=== PATIENT | male | born 1970 | race Caucasian/White ===

== ENCOUNTER → 2017-11-20 | Outpatient (CLI) | payer BC ==
[2017-11-20 17:32] LABS: THYROID PEROXIDASE ANTIBODY < 28.0 U/ML (<60.0)
[2017-11-20 17:33] LABS: THYROGLOBULIN ANTIBODY 24.1 U/ML (<60.0)
[2017-11-20 17:34] LABS: CHOLESTEROL LEVEL 207 MG/DL (<200); FREE T4 1.26 NG/DL (0.76-1.46); HDL CHOLESTEROL 36 MG/DL (>40); LDL CHOLESTEROL 138.6 MG/DL (<100); NON-HDL-C 171 MG/DL; TRIGLYCERIDES LEVEL 162 MG/DL (<150)
== END ==
LOC: M SMT 13:54
DX: E89.0 Postprocedural hypothyroidism (principal); E78.2 Mixed hyperlipidemia
CPT/HCPCS: 84443

== ENCOUNTER 2017-12-23 10:54 | Outpatient (CLI) | payer BC ==
[2017-12-23] MEDS: ACETAMINOPHEN 650 MG PO PO (12:00)
[2017-12-23] MEDS: NS 1,000 ML IV (12:01)
[2017-12-23] MEDS: NS IV (12:01)
[2017-12-23] MEDS: INFLIXIMAB IV (12:01)
== END 2017-12-23 15:30 | disposition home or self-care (01) ==
LOC: M INFU 10:54
DX: M05.79 Rheumatoid arthritis with rheumatoid factor of multiple sites without organ or systems involvement (principal); E78.00 Pure hypercholesterolemia, unspecified; K21.9 Gastro-esophageal reflux disease without esophagitis; E03.9 Hypothyroidism, unspecified; Z79.899 Other long term (current) drug therapy; Z87.891 Personal history of nicotine dependence
CPT/HCPCS: J1745

== ENCOUNTER 2018-02-03 10:03 | Outpatient (CLI) | payer BC ==
[2018-02-03] MEDS: FILTER 1.2 MICRON (ADULT TPN/MANNITOL/REMICADE) XX (10:15)
[2018-02-03] MEDS ORDERED: NS 1,000 ML IV (10:15)
[2018-02-03] MEDS: ACETAMINOPHEN TAB 650MG DOSE (2X325MG) PO (10:15)
[2018-02-03] MEDS: inFLIXimab INJECTION 1,200 MG in NS 180 ML IV (10:45)
== END 2018-02-03 13:00 | disposition home or self-care (01) ==
LOC: M INFU 10:03
DX: M05.79 Rheumatoid arthritis with rheumatoid factor of multiple sites without organ or systems involvement (principal); E78.00 Pure hypercholesterolemia, unspecified; E03.9 Hypothyroidism, unspecified; Z79.899 Other long term (current) drug therapy; Z88.8 Allergy status to other drugs, medicaments and biological substances; Z87.891 Personal history of nicotine dependence; Z87.442 Personal history of urinary calculi; Z90.49 Acquired absence of other specified parts of digestive tract; Z90.89 Acquired absence of other organs; Z96.653 Presence of artificial knee joint, bilateral
CPT/HCPCS: J1745

== ENCOUNTER 2018-03-17 13:15 | Outpatient (CLI) | payer BC ==
[2018-03-17] MEDS: ACETAMINOPHEN TAB 650MG DOSE (2X325MG) PO (13:30)
[2018-03-17] MEDS ORDERED: NS 1,000 ML IV (13:30)
[2018-03-17] MEDS: inFLIXimab INJECTION 1,200 MG in NS 180 ML IV (14:15)
[2018-03-17] MEDS: FILTER 1.2 MICRON (ADULT TPN/MANNITOL/REMICADE) XX (14:15)
== END 2018-03-17 16:30 | disposition home or self-care (01) ==
LOC: M INFU 13:15
DX: M05.79 Rheumatoid arthritis with rheumatoid factor of multiple sites without organ or systems involvement (principal); E03.9 Hypothyroidism, unspecified; K21.9 Gastro-esophageal reflux disease without esophagitis; E78.00 Pure hypercholesterolemia, unspecified; Z79.899 Other long term (current) drug therapy; Z88.8 Allergy status to other drugs, medicaments and biological substances; Z87.891 Personal history of nicotine dependence; Z87.442 Personal history of urinary calculi
CPT/HCPCS: J1745

== ENCOUNTER 2018-04-30 14:24 | Outpatient (CLI) | payer BC ==
[2018-04-30] MEDS: FILTER 1.2 MICRON (ADULT TPN/MANNITOL/REMICADE) XX (14:15)
[~2018-04-30 14:24] MED LIST: ACETAMINOPHEN TAB 650MG DOSE (2X325MG) PO; NS 1,000 ML IV
[2018-04-30] MEDS: inFLIXimab INJECTION 1,200 MG in NS 180 ML IV (14:50)
== END 2018-04-30 17:15 | disposition home or self-care (01) ==
LOC: M INFU 14:24
DX: M05.79 Rheumatoid arthritis with rheumatoid factor of multiple sites without organ or systems involvement (principal); Z88.8 Allergy status to other drugs, medicaments and biological substances; Z88.1 Allergy status to other antibiotic agents
CPT/HCPCS: J1745

== ENCOUNTER 2018-06-10 13:05 | Outpatient (CLI) | payer BC ==
[2018-06-10] MEDS: ACETAMINOPHEN TAB 650MG DOSE (2X325MG) PO (13:28)
[2018-06-10] MEDS: NS 1,000 ML IV (13:29)
[2018-06-10] MEDS: FILTER 1.2 MICRON (ADULT TPN/MANNITOL/REMICADE) XX (13:30)
[2018-06-10] MEDS: inFLIXimab INJECTION 1,200 MG in NS 180 ML IV (13:41)
== END 2018-06-10 16:05 | disposition home or self-care (01) ==
LOC: M INFU 13:05
DX: M05.79 Rheumatoid arthritis with rheumatoid factor of multiple sites without organ or systems involvement (principal); Z88.2 Allergy status to sulfonamides; Z88.8 Allergy status to other drugs, medicaments and biological substances
CPT/HCPCS: J1745

== ENCOUNTER 2018-07-21 12:01 | Outpatient (CLI) | payer BC ==
[2018-07-21] MEDS: inFLIXimab INJECTION 1,200 MG in NS 180 ML IV (12:48)
[2018-07-21] MEDS: FILTER 1.2 MICRON (ADULT TPN/MANNITOL/REMICADE) XX (12:48)
[2018-07-21] MEDS: ACETAMINOPHEN 650MG PO PRIOR TO INFUSION PO (12:48)
[2018-07-21] MEDS ORDERED: NS 1,000 ML IV (13:00)
== END 2018-07-21 15:15 | disposition home or self-care (01) ==
LOC: M INFU 12:01
DX: M05.79 Rheumatoid arthritis with rheumatoid factor of multiple sites without organ or systems involvement (principal); Z88.2 Allergy status to sulfonamides; Z88.8 Allergy status to other drugs, medicaments and biological substances
CPT/HCPCS: J1745

== ENCOUNTER 2018-09-01 11:43 | Outpatient (CLI) | payer BC ==
[~2018-09-01] VITALS: Ht 172.7 cm; Wt 120.0 kg
[~2018-09-01 11:43] MED LIST changes: +/CELE20CA PO; +/FENO14TA PO; +/WARF25TA PO; +ACET50TA PO; -ACETAMINOPHEN TAB 650MG DOSE (2X325MG) PO; +ALLO100T PO; +ALLO300T2 PO; +BENA25TA4 PO; +CELE1CAP4 PO; +COUM2.5T17 PO; +LEVO150T7 PO; +LEVO175T2 PO; +LYRI75CA PO; -NS 1,000 ML IV; +PERC2.5T PO; +PERC5TAB12 PO; +PERC7.5T12 PO; +SYNT150T PO; +SYNT175T2 PO; +TRIC145T22 PO; +ZOFR4SOL PO; +remicade IV; +tricor OR
[2018-09-01 11:55] VITALS: BP 150/98
[2018-09-01] MEDS ORDERED: inFLIXimab INJECTION 1,200 MG in NS 180 ML IV ONE (12:00)
[2018-09-01 14:30] VITALS: BP 132/78
== END 2018-09-01 14:45 | disposition home or self-care (01) ==
LOC: M INFU 11:43
PROVIDERS: ATTEND Internal Medicine
DX: M05.79 Rheumatoid arthritis with rheumatoid factor of multiple sites without organ or systems involvement (principal)
CPT/HCPCS: 96413; 96415; J1745

== ENCOUNTER 2018-10-13 11:36 | Outpatient (CLI) | payer BC ==
[~2018-10-13] VITALS: Ht 167.6 cm; Wt 120.0 kg
[2018-10-13 11:40] VITALS: BP 133/88
[2018-10-13] MEDS ORDERED: NS 1,000 ML IV SCH (11:45)
[2018-10-13] MEDS ORDERED: ACETAMINOPHEN 650MG PO PRIOR TO INFUSION PO ONE (11:45)
[2018-10-13] MEDS ORDERED: FILTER 1.2 MICRON (ADULT TPN/MANNITOL/REMICADE) XX ONE (11:45)
[2018-10-13] MEDS ORDERED: inFLIXimab INJECTION 1,200 MG in NS 180 ML IV ONE (12:00)
[2018-10-13 12:21] LABS: BASO % 0.2 % (0.0-1.0); EOS # 0.4 10^3/uL (0.0-0.50); EOS % 4.7 % (0.0-3.0); HEMATOCRIT 44.5 % (42.0-52.0); MEAN CORPUSCULAR HEMOGLOBIN 30.7 pg (27.0-33.0); MEAN CORPUSCULAR HGB CONC 33.7 g/dl (32.0-36.5); MONO # 0.7 10^3/uL (0.0-0.8); MONO % 7.6 % (0.0-5.0); NEUTROPHILS # 4.9 10^3/uL (1.8-7.7); NEUTROPHILS % 54.2 % (36.0-66.0); PLATELET COUNT, AUTOMATED 261 10^3/uL (150-450); RED BLOOD COUNT 4.89 10^6/uL (4.30-6.10); WHITE BLOOD COUNT 9.1 10^3/uL (4.0-10.0)
[2018-10-13 13:03] LABS: ALBUMIN 4.1 GM/DL (3.2-5.2); ALT/SGPT 30 U/L (12-78); BILIRUBIN,TOTAL 0.4 MG/DL (0.2-1.0); BLOOD UREA NITROGEN 15 MG/DL (7-18); CALCIUM LEVEL 8.8 MG/DL (8.5-10.1); CARBON DIOXIDE LEVEL 25 MEQ/L (21-32); CHLORIDE LEVEL 107 MEQ/L (98-107); CHOLESTEROL LEVEL 203 MG/DL (<200); CHOLESTEROL RISK RATIO 5.075 (<5); CREATININE FOR GFR 0.89 MG/DL (0.70-1.30); FREE T4 1.43 NG/DL (0.76-1.46); GLOMERULAR FILTRATION RATE > 60.0 (>60); GLUCOSE, FASTING 93 MG/DL (70-100); HDL CHOLESTEROL 40 MG/DL (>40); LDL CHOLESTEROL 131 MG/DL (<100); NON-HDL-C 163 MG/DL; SODIUM LEVEL 139 MEQ/L (136-145); TOTAL PROTEIN 7.3 GM/DL (6.4-8.2); TRIGLYCERIDES LEVEL 159 MG/DL (<150)
[2018-10-13 14:20] VITALS: BP 130/80
== END 2018-10-13 14:30 | disposition home or self-care (01) ==
LOC: M INFU 11:36
PROVIDERS: ATTEND Internal Medicine
DX: M05.79 Rheumatoid arthritis with rheumatoid factor of multiple sites without organ or systems involvement (principal); Z88.8 Allergy status to other drugs, medicaments and biological substances; E78.2 Mixed hyperlipidemia; E89.0 Postprocedural hypothyroidism
CPT/HCPCS: 36415; 80053; 80061; 84439; 84443; 85025; 96413; 96415; J1745

== ENCOUNTER 2018-11-25 11:56 | Outpatient (CLI) | payer BC ==
[~2018-11-25] VITALS: Ht 165.1 cm; Wt 120.0 kg
[~2018-11-25 11:56] MED LIST changes: -/CELE20CA PO; -/FENO14TA PO; -/WARF25TA PO; -ACET50TA PO; +ACETAMINOPHEN 650MG PO PRIOR TO INFUSION PO ONE; +COUM1TAB18 PO; +FILTER 1.2 MICRON (ADULT TPN/MANNITOL/REMICADE) XX ONE; +MAPA500T17 PO; +NS 1,000 ML IV SCH; +TRIC145T19 PO
[2018-11-25 12:00] VITALS: BP 144/88
[2018-11-25] MEDS ORDERED: inFLIXimab INJECTION 1,200 MG in NS 180 ML IV ONE (12:00)
[2018-11-25 14:40] VITALS: BP 142/88
== END 2018-11-25 14:40 | disposition home or self-care (01) ==
LOC: M INFU 11:56
PROVIDERS: ATTEND Internal Medicine
DX: M05.79 Rheumatoid arthritis with rheumatoid factor of multiple sites without organ or systems involvement (principal); Z88.8 Allergy status to other drugs, medicaments and biological substances
CPT/HCPCS: 96413; 96415; J1745

== ENCOUNTER 2019-01-06 11:06 | Outpatient (CLI) | payer BC ==
[~2019-01-06] VITALS: Ht 177.8 cm; Wt 120.0 kg
[~2019-01-06 11:06] MED LIST changes: -ACETAMINOPHEN 650MG PO PRIOR TO INFUSION PO ONE; -FILTER 1.2 MICRON (ADULT TPN/MANNITOL/REMICADE) XX ONE; -NS 1,000 ML IV SCH
[2019-01-06 11:10] VITALS: BP 151/90
[2019-01-06] MEDS ORDERED: FILTER 1.2 MICRON (ADULT TPN/MANNITOL/REMICADE) XX ONE (11:30)
[2019-01-06] MEDS ORDERED: inFLIXimab INJECTION 1,200 MG in NS 180 ML IV ONE (11:30)
[2019-01-06] MEDS ORDERED: ACETAMINOPHEN 650MG PO PRIOR TO INFUSION PO ONE (11:30)
[2019-01-06] MEDS ORDERED: NS 1,000 ML IV SCH (11:30)
--- NOTE | 2019-01-06 11:57 | HPEPDOC ---
[facility] Medical History & Physical Date of Admission January 06, 2019 Attending Physician: RENATA BEST MD History and Physical CHIEF COMPLAINT: Severe Rheumatoid Arthritis requiring Remicade infusions HISTORY OF PRESENT ILLNESS: Adolfo Grant is a 48-year-old white male, past medical history of severe rheumatoid arthritis, thyroid cancer status post-resection, who presents to the hospital this morning to receive his regularly scheduled Remicade infusion. Patient has been receiving Remicade infusions for the last 9 years without any adverse events. He is scheduled to receive Remicade every 6 weeks or the direction of [facility] in [place]. Upon presentation today, patient denies any acute complaints including chest pain/tightness/discomfort or difficulty breathing. PAST MEDICAL HISTORY: 1. Severe Rheumatoid Arthritis 2. History of thyroid cancer PAST SURGICAL HISTORY: 1. Thyroidectomy, 2006 2. Tonsillectomy, 2007 3. Right knee replacement, 2013 4. Cholecystectomy, 2014 5. Left knee replacement, 2015 SOCIAL HISTORY: Marital status: Resides in: Alone home in [place] Employment: Self-employed, retail Tobacco use: Former smoker, 13 years nicotine free ETOH: Occasional Illicit drug use: Recreational marijuana use IV drug use: Patient denies IV or other illicit drug use Other relevant social factors: Patient utilizes reading glasses FAMILY HISTORY: Father: , 63, lung cancer Mother: , early 70s, unknown cardiac problem requiring an AICD ALLERGIES: -Sulfasalazine -Certolizumab Pegol -Etanercept REVIEW OF SYSTEMS: CONSTITUTIONAL: Patient denies any fevers, chills, night sweats, changes in we ight, increased fatigue HEENT: Patient denies any headache, changing/blurry vision, ear pain, difficulty swallowing CARDIOVASCULAR: Patient denies any chest pain/discomfort, exertional angina RESPIRATORY: Denies recent history of cough, shortness of breath, difficulty breathing GASTROINTESTINAL: Denies nausea, vomiting, abdominal pain/discomfort, difficulty stooling. Recent history of constipation or diarrhea, no history of bloody stools GENITOURINARY: Denies any difficulty urinating, denies dysuria SKIN: Denies any rashes or new/evolving lesions MUSCULOSKELETAL: Denies any noticeable muscle skeletal weakness, reports joint pains secondary to his severe rheumatoid arthritis NEUROLOGICAL: Denies any numbness or tingling in his hands or his feet, denies any history of focal neurologic deficit PSYCHIATRIC: Denies psychiatric history, including clinical depression or anxiety ENDOCRINE: Denies polyuria or polydipsia HEMATOLOGIC/LYMPHATIC: Denies any history of easy/recurrent bruising or bleeding HOME MEDICATIONS: 1. Synthroid 150 mg tablet 2 Synthroid 175 mg tablet 3. Allopurinol 300 mg tablet 4. TriCor 145 mg tablets 5. Clobetasol 0.05% topical cream 6. Remicade 100 mg IV infusion every 6 months 7. Ibuprofen 800 mg tablet when necessary PHYSICAL EXAMINATION: GENERAL APPEARANCE: HEENT: Normocephalic, atraumatic PERRLA, EOMI, good oral hygiene, no posterior pharyngeal erythema, tongue is midline CARDIOVASCULAR: Regular rate and rhythm, normal S1 and S2 no murmurs appreciated LUNGS: Clear to auscultation bilaterally, no wheezes rales or rhonchi ABDOMEN: Nontender, nondistended, soft MUSCULOSKELETAL: Normal gait and posture EXTREMITIES: Able to move all extremities equally and bilaterally without difficulty, with full range of motion NEUROLOGICAL: Strength 5 out of 5 in upper and lower extremities. No appreciable focal neurologic deficits. No aphasia or facial drooping PSYCHIATRIC: Mood and affect are appropriate ASSESSMENT: Patient is a 48-year-old white male, past medical history significant for severe rheumatoid arthritis, history of thyroid cancer S/P thyroidectomy, who presents to the hospital to receive his Remicade infusion. Patient has been receiving Remicade infusions for the greater part of the last 9 years without adverse event. Upon presentation, patient's is in his usual state of health without any acute complaints or concerns, supported by physical exam. PLAN: 1. Severe rheumatoid arthritis -History and physical examination does not indicate any condition that would preclude the patient receiving his regular scheduled Remicade infusion. -Patient to receive 10 mg/kg 120 kg for a total dose of 1200 mg of reconstituted Remicade and 50 mL 0.9% NaCl solution -Patient to receive Remicade infusions every 6 weeks Home Medications Scheduled Allopurinol (Allopurinol) 100 Mg Tab, 300 MG PO QHS Fenofibrate Nanocrystallized (Tricor) 145 Mg Tab, 145 MG PO DAILY Levothyroxine Sodium (Levothyroxine Sodium) 175 Mcg Tab, 175 MCG PO Q2D Levothyroxine Sodium (Levothyroxine Sodium) 150 Mcg Tab, 150 MCG PO Q2D [remicade] , 1,200 MG IV ASDIRECTED Allergies Coded Allergies: MS - Benzyl Alcohol (Verified Allergy, Unknown, 02/07/16) MS - Certolizumab Pegol (Verified Allergy, Unknown, 07/21/18) MS - Etanercept (Verified Allergy, Unknown, 02/07/16) MS - Sulfa Antibiotics (Verified Allergy, Unknown, 02/07/16) MS - Sulfasalazine (Verified Allergy, Unknown, 07/21/18) MS - Tromethamine (Verified Allergy, Unknown, 02/07/16) Attending Note Attending Note I personally performed a history and physical examination of the patient and discussed his management with the resident. I reviewed the resident's note and agree with the documented findings and plan of care. I spent 10 mins with the patient. GINYN RAHMAN DO January 06, 2019 11:57 RENATA BEST MD January 06, 2019 13:12
[2019-01-06 14:18] VITALS: BP 132/79
== END 2019-01-06 14:15 | disposition home or self-care (01) ==
LOC: M INFU 11:06
PROVIDERS: ATTEND Internal Medicine
DX: M05.79 Rheumatoid arthritis with rheumatoid factor of multiple sites without organ or systems involvement (principal); Z88.2 Allergy status to sulfonamides; Z88.8 Allergy status to other drugs, medicaments and biological substances
CPT/HCPCS: 96413; 96415; J1745

== ENCOUNTER 2019-02-18 12:04 | Outpatient (CLI) | payer BC ==
[~2019-02-18] VITALS: Ht 172.7 cm; Wt 120.0 kg
[~2019-02-18 12:04] MED LIST changes: +ACETAMINOPHEN 650MG PO PRIOR TO INFUSION PO ONE; +FILTER 1.2 MICRON (ADULT TPN/MANNITOL/REMICADE) XX ONE; +NS 1,000 ML IV SCH; +inFLIXimab INJECTION 1,200 MG in NS 180 ML IV ONE
[2019-02-18 12:15] VITALS: BP 170/79
[2019-02-18 15:00] VITALS: BP 168/76
== END 2019-02-18 15:00 | disposition home or self-care (01) ==
LOC: M INFU 12:04
PROVIDERS: ATTEND Internal Medicine Rheumatology
DX: M05.79 Rheumatoid arthritis with rheumatoid factor of multiple sites without organ or systems involvement (principal); Z88.8 Allergy status to other drugs, medicaments and biological substances
CPT/HCPCS: 96413; 96415; J1745

== ENCOUNTER 2019-03-30 12:06 | Outpatient (CLI) | payer BC ==
[~2019-03-30] VITALS: Ht 172.7 cm; Wt 120.0 kg
[2019-03-30 11:20] VITALS: BP 144/89
[~2019-03-30 12:06] MED LIST changes: -ACETAMINOPHEN 650MG PO PRIOR TO INFUSION PO ONE; -FILTER 1.2 MICRON (ADULT TPN/MANNITOL/REMICADE) XX ONE; -NS 1,000 ML IV SCH; -inFLIXimab INJECTION 1,200 MG in NS 180 ML IV ONE
[2019-03-30] MEDS ORDERED: FILTER 1.2 MICRON (ADULT TPN/MANNITOL/REMICADE) XX ONE (12:45)
[2019-03-30] MEDS ORDERED: NS 1,000 ML IV SCH (12:45)
[2019-03-30] MEDS ORDERED: ACETAMINOPHEN 650MG PO PRIOR TO INFUSION PO ONE (13:00)
[2019-03-30] MEDS ORDERED: inFLIXimab INJECTION 1,200 MG in NS 180 ML IV ONE (13:30)
== END 2019-03-30 15:40 | disposition home or self-care (01) ==
LOC: M INFU 12:06
PROVIDERS: ATTEND Internal Medicine Rheumatology
DX: M05.79 Rheumatoid arthritis with rheumatoid factor of multiple sites without organ or systems involvement (principal); Z88.2 Allergy status to sulfonamides; Z88.8 Allergy status to other drugs, medicaments and biological substances
CPT/HCPCS: 96413; 96415; J1745

== ENCOUNTER 2019-05-10 12:12 | Outpatient (CLI) | payer BC ==
[~2019-05-10] VITALS: Ht 172.7 cm; Wt 120.0 kg
[2019-05-10 12:25] VITALS: BP_SYST 135; BP_SYST 152; BP_DIAS 63; BP_DIAS 89
[2019-05-10] MEDS ORDERED: NS 1,000 ML IV SCH (12:45)
[2019-05-10] MEDS ORDERED: FILTER 1.2 MICRON (ADULT TPN/MANNITOL/REMICADE) XX ONE (12:45)
[2019-05-10] MEDS ORDERED: ACETAMINOPHEN 650MG PO PRIOR TO INFUSION PO ONE (12:45)
[2019-05-10] MEDS ORDERED: inFLIXimab INJECTION 1,200 MG in NS 180 ML IV ONE (13:00)
[2019-05-10 15:10] VITALS: BP 135/77
== END 2019-05-10 15:20 | disposition home or self-care (01) ==
LOC: M INFU 12:12
PROVIDERS: ATTEND Internal Medicine Rheumatology
DX: M05.79 Rheumatoid arthritis with rheumatoid factor of multiple sites without organ or systems involvement (principal); Z88.2 Allergy status to sulfonamides; Z88.8 Allergy status to other drugs, medicaments and biological substances
CPT/HCPCS: 96413; 96415; J1745

== ENCOUNTER 2019-06-22 12:23 | Outpatient (CLI) | payer BC ==
[~2019-06-22] VITALS: Ht 172.7 cm; Wt 120.0 kg
[2019-06-22] MEDS ORDERED: SODIUM CHLORIDE 0.9% INJ 10 ML SYR IV PRN (13:00)
[2019-06-22] MEDS ORDERED: SODIUM CHLORIDE 0.9% INJ 10 ML SYR IV ONE (13:00)
[2019-06-22] MEDS ORDERED: NS 1,000 ML IV SCH (13:30)
[2019-06-22] MEDS ORDERED: FILTER 1.2 MICRON (ADULT TPN/MANNITOL/REMICADE) XX ONE (13:30)
[2019-06-22] MEDS ORDERED: inFLIXimab INJECTION 1,200 MG in NS 180 ML IV ONE (14:00)
[2019-06-22] MEDS ORDERED: ACETAMINOPHEN 650MG PO PRIOR TO INFUSION PO ONE (14:00)
== END 2019-06-22 16:25 | disposition home or self-care (01) ==
LOC: M INFU 12:23
PROVIDERS: ATTEND Internal Medicine Rheumatology
DX: M05.79 Rheumatoid arthritis with rheumatoid factor of multiple sites without organ or systems involvement (principal); Z88.2 Allergy status to sulfonamides; Z88.8 Allergy status to other drugs, medicaments and biological substances
CPT/HCPCS: 96413; 96415; J1745

== ENCOUNTER 2019-08-03 12:23 | Outpatient (CLI) | payer BC ==
[~2019-08-03] VITALS: Ht 172.7 cm; Wt 120.0 kg
[2019-08-03 12:30] VITALS: BP 155/94
[2019-08-03] MEDS ORDERED: FILTER 1.2 MICRON (ADULT TPN/MANNITOL/REMICADE) XX ONE (13:30)
[2019-08-03] MEDS ORDERED: inFLIXimab INJECTION 1,200 MG in NS 180 ML IV ONE (13:30)
[2019-08-03] MEDS ORDERED: NS 1,000 ML IV SCH (13:30)
[2019-08-03] MEDS ORDERED: ACETAMINOPHEN 650MG PO PRIOR TO INFUSION PO ONE (13:30)
[2019-08-03 15:30] VITALS: BP 143/79
== END 2019-08-03 15:30 | disposition home or self-care (01) ==
LOC: M INFU 12:23
PROVIDERS: ATTEND Internal Medicine Rheumatology
DX: M05.79 Rheumatoid arthritis with rheumatoid factor of multiple sites without organ or systems involvement (principal); Z88.2 Allergy status to sulfonamides; Z88.8 Allergy status to other drugs, medicaments and biological substances
CPT/HCPCS: 96413; 96415; J1745

== ENCOUNTER 2020-02-03 12:38 | Inpatient (IN) | payer BC ==
[~2020-02-03] VITALS: Ht 175.3 cm; Wt 111.8 kg
[2020-02-03 13:12] LABS: BASO % 0.3 % (0.0-1.0); EOS # 0.4 10^3/uL (0.0-0.5); EOS % 2.7 % (0.0-3.0); HEMATOCRIT 44.9 % (42.0-52.0); HEMOGLOBIN 15.1 g/dl (13.5-17.5); LYMPH # 5.3 10^3/uL (1.5-5.0); LYMPH % 34.3 % (24.0-44.0); MEAN CORPUSCULAR HGB CONC 33.6 g/dl (32.0-36.5); MEAN CORPUSCULAR VOLUME 92.2 fl (80.0-96.0); MONO # 1.7 10^3/uL (0.0-0.8); MONO % 11.2 % (0.0-5.0); NEUTROPHILS # 7.9 10^3/uL (1.5-8.5); NEUTROPHILS % 51.3 % (36.0-66.0); PLATELET COUNT, AUTOMATED 266 10^3/uL (150-450); RED BLOOD COUNT 4.87 10^6/uL (4.30-6.10)
[2020-02-03 13:13] LABS: WHITE BLOOD COUNT 15.4 10^3/uL (4.0-10.0)
[2020-02-03] MEDS ORDERED: ONDANSETRON 4MG/2ML VIAL IV ONE (13:30)
[2020-02-03] MEDS ORDERED: NS 1,000 ML IV ONE (13:30)
[2020-02-03 14:02] LABS: ALBUMIN 4.1 GM/DL (3.2-5.2); ALT/SGPT 36 U/L (12-78); BILIRUBIN,DIRECT 0.2 MG/DL (0.0-0.2); BLOOD UREA NITROGEN 10 MG/DL (7-18); CALCIUM LEVEL 8.9 MG/DL (8.5-10.1); CARBON DIOXIDE LEVEL 24 MEQ/L (21-32); CHLORIDE LEVEL 107 MEQ/L (98-107); CREATININE FOR GFR 0.92 MG/DL (0.70-1.30); GLOMERULAR FILTRATION RATE > 60.0 (>60); GLUCOSE, FASTING 98 MG/DL (70-100); LIPASE 29 U/L (73-393); POTASSIUM SERUM 3.8 MEQ/L (3.5-5.1); SODIUM LEVEL 140 MEQ/L (136-145); TOTAL PROTEIN 7.7 GM/DL (6.4-8.2)
[2020-02-03] MEDS ORDERED: KETOROLAC 30 MG/ML 1ML VIAL IV ONE (14:15)
[2020-02-03] MEDS ORDERED: ISOVUE-370 76% 100ML VIAL As Ordered ONE (14:20)
[2020-02-03] MEDS ORDERED: metroNIDAZOLE 500 MG in IV 1 EA IV ONE (16:00)
[2020-02-03] MEDS ORDERED: MORPHINE 4 MG/ML 1ML VIAL/SYRINGE (J2270) IV ONE (16:00)
[2020-02-03] MEDS ORDERED: cefTRIAXone SOD 1 GM in D5W MINI-BAG PLUS 50 ML IV ONE (16:00)
[2020-02-03] MEDS ORDERED: TRIC145T22 PO (16:33)
[2020-02-03] MEDS ORDERED: IBUP200T45 PO (16:33)
[2020-02-03] MEDS ORDERED: ZYLO300T6 PO (16:33)
[2020-02-03] MEDS ORDERED: MORPHINE 2 MG/ML 1ML VIAL (J2270) IV PRN (17:00)
[2020-02-03] MEDS ORDERED: ACETAMINOPHEN TAB 650MG DOSE (2X325MG) PO PRN (17:00)
--- NOTE | 2020-02-03 17:18 | HPEPDOC ---
[facility] Medical History & Physical Date of Admission Feb 03, 2020 Date of Service: Feb 03, 2020 Attending Physician: RENATA BEST MD History and Physical CHIEF COMPLAINT: Abdominal pain HISTORY OF PRESENT ILLNESS: Patient is a 49-year-old male who presented to [facility] emergency department with complaint of abdominal pain for 2 days. Patient states that he has a history of rheumatoid arthritis and takes Remicade. He had developed abdominal pain yesterday as well as a decreased appetite secondary to the pain. He stated that he was informed by his tester compressed gases that he should present to the emergency department as he is new suppressed from his Remicade. The patient denies any diarrhea. He denies any bloody stools. He denies any fevers or chills. He denies any nausea or vomiting. Patient states that his only symptoms are abdominal pain. On presentation the emergency room the patient was found to be afebrile and otherwise vitally stable. He did have a leukocytosis. CT imaging was obtained which demonstrated left colonic diverticulitis. Patient was given Flagyl 500 mg IV and Rocephin 1 g in the emergency department. Additionally, he was given normal saline bolus. He was given Toradol and morphine for pain. Hospitalist service was consulted for further evaluation and management. PAST MEDICAL HISTORY: 1. Rheumatoid arthritis on Remicade. 2. Hypercholesteremia. 3. Hypothyroidism secondary to thyroidectomy 4. History of thyroid cancer status post thyroidectomy 5. History of kidney stones PAST SURGICAL HISTORY: 1. Bilateral knee replacement 2 Total Thyroidectomy for thyroid cancer 3., Tonsillectomy 4. Trans-urethral resection of Ejaculatory duct 5. Left variceal correction SOCIAL HISTORY: Patient lives at home with his fiance. He is self-employed. He is a nonsmoker. He denies any IV drug use. He was to marijuana use. He drinks alcohol on occasion. FAMILY HISTORY: Patient denies any significant family history ALLERGIES: Please see below. REVIEW OF SYSTEMS: CONSTITUTIONAL:. Denies fevers, chills, night sweats. Denies unintentional weight loss or weight gain. HEENT:. Denies change in vision. Denies dysphagia. Denies odynophagia CARDIOVASCULAR: Denies chest pain, palpitations or feelings of heart racing. RESPIRATORY:. Denies short of breath. Denies cough. Denies wheezing. GASTROINTESTINAL:. Admits to abdominal pain mostly located in the left lower quadrant. Denies diarrhea, constipation. Denies blood in stools. Denies dark tarry stools. Denies nausea or vomiting. GENITOURINARY:. Denies dysuria, increased frequency. Denies urinary urgency. SKIN:. Denies any rashes or lesions. MUSCULOSKELETAL:. Admits to chronic joint pain secondary to his rheumatoid arthritis. However, nothing more from his baseline.. NEUROLOGICAL: Denies any change in speech or gait. PSYCHIATRIC:. Denies depression or anxiety. ENDOCRINE:. Denies heat intolerance, or cold intolerance. Denies diabetes HEMATOLOGIC/LYMPHATIC:, Denies easy bruising or bleeding. Denies history of pulmonary embolism or DVT. HOME MEDICATIONS: Please see below. PHYSICAL EXAMINATION: VITAL SIGNS: Temperature 98.6, pulse, 91, respiratory rate 18, blood pressure 131\75, pulse oximetry, 98 % on room air. GENERAL APPEARANCE:. Patient is awake, alert and oriented, does not appear in acute distress. He sitting up comfortably on exam bed. HEENT:, Atraumatic normocephalic. Eyes are nonicteric. Trachea is midline. mucous membranes are pink and moist. CARDIOVASCULAR: Normal S1, S2, regular rate and rhythm. No clicks, rubs or murmurs. LUNGS:. Clear vesicular breath sounds bilaterally. Good respiratory effort. No wheezes, rhonchi or rales. Symmetric chest expansion. ABDOMEN:. Soft, obese, nondistended, mild tenderness in the left lower quadrant. No rebound tenderness or guarding. Normoactive bowel sounds throughout EXTREMITIES: No edema. Full and equal pulses in bilateral upper and lower ex tremities. NEUROLOGICAL:. No focal neurological deficits. PSYCHIATRIC: Mood and affect appear appropriate. LABORATORY DATA: See below. IMAGING: Full report pending. Abdominal pelvis CT demonstrating likely left colonic diverticulitis MICROBIOLOGY: Please see below. ASSESSMENT: A 49-year-old male who presented to [facility] emergency department with complaint of left lower quadrant abdominal pain and found to have left colonic diverticulitis. . PLAN: 1. Left colonic diverticulitis -Patient has left clonic diverticulitis demonstrated on CT imaging. He has elevated white count. Patient is otherwise vitally stable. He received IV Flagyl and Rocephin in the emergency department. -At this time. Imaging does not suggest any acute perforation. The patient's diverticulitis appears mild. We'll continue IV Flagyl 500 mg every 8 hours Will adjust Rocephin dose to 2 g every 24 hours. -Patient has stated that his pain is mild. He states that he is able to try and tolerate oral intake. We'll place on a clear liquids diet. If patient has increased pain. We will make patient nothing by mouth and R to give bowel rest. Will give gentle fluid hydration with normal saline 1 L total. -Tylenol and morphine for pain control -Zofran for nausea, vomiting -Pending patient's clinical improvement, will likely transition to oral antibiotics in a day or so. 2. Rheumatoid arthritis on Remicade -Patient is on Remicade outpatient for rheumatoid arthritis. Currently his rheumatoid arthritis is not in acute flare. 3. Hypothyroidism -Patient is hypothyroidism secondary to thyroidectomy secondary to history of thyroid cancer. Will continue his Synthroid inpatient. 4. Hyperlipidemia -Will continue fenofibrate 5. DVT prophylaxis -Mechanical. Patient's Richelle prediction score is 2 and therefore pharmacological prophylaxis not indicated Vital Signs Vital Signs Date Time Temp Pulse Resp B/P (MAP) Pulse Ox O2 Delivery O2 Flow Rate FiO2 02/03/20 13:14 02/03/20 12:38 98.6 91 18 98 Room Air Laboratory Data Labs 24H Laboratory Tests 2 02/03/20 13:00: Immature Granulocyte % (Auto) 0.2, Neutrophils (%) (Auto) 51.3, Lymphocytes (%) (Auto) 34.3, Monocytes (%) (Auto) 11.2H, Eosinophils (%) (Auto) 2.7, Basophils (%) (Auto) 0.3, Neutrophils # (Auto) 7.9, Lymphocytes # (Auto) 5.3H, Monocytes # (Auto) 1.7H, Eosinophils # (Auto) 0.4, Basophils # (Auto) 0.0, Nucleated Red Blood Cells % (auto) 0.0, Anion Gap 9, Glomerular Filtration Rate > 60.0, Calcium Level 8.9, Total Bilirubin 1.0, Direct Bilirubin 0.2, Aspartate Amino Transf (AST/SGOT) 21, Alanine Aminotransferase (ALT/SGPT) 36, Alkaline Phosphatase 75, Total Protein 7.7, Albumin 4.1, Albumin/Globulin Ratio 1.1, Lipase 29L 02/03/20 13:45: POC Glucose (Misc Panel) 103, POC Sodium (Misc Panel) 140, POC Potassium (Misc Panel) 3.8, POC Chloride (Misc Panel) 103, POC Total CO2 (Misc Panel) 25.0, POC Blood Urea Nitrogen (Misc Panel 10, POC Ionized Calcium (Misc Panel) 4.7, POC Creatinine (Misc Panel) 0.8, POC Hematocrit (Misc Panel) 47.0 02/03/20 15:48: Urine Color YELLOW, Urine Appearance CLEAR, Urine pH 6.0, Urine Specific Saxon 1.053, Urine Protein NEGATIVE, Urine Glucose (UA) NEGATIVE, Urine Ketones NEGATIVE, Urine Blood NEGATIVE, Urine Nitrite NEGATIVE, Urine Bilirubin NEGATIVE, Urine Urobilinogen 0.2, Urine Leukocyte Esterase NEGATIVE, Urine WBC (Auto) 0, Urine RBC (Auto) 0, Urine Hyaline Casts (Auto) 0, Urine Bacteria (Auto) NEGATIVE, Urine Squamous Epithelial Cells 0, Urine Sperm (Auto) CBC/BMP Laboratory Tests 02/03/20 13:00 Home Medications Scheduled Allopurinol (Zyloprim) 300 Mg Tablet, 300 MG PO QHS Fenofibrate Nanocrystallized (Tricor) 145 Mg Tablet, 145 MG PO DAILY Levothyroxine Sodium (Levothyroxine Sodium) 175 Mcg Tab, 175 MCG PO Q2D SYNTHROID BRAND ONLY PER PATIENT Levothyroxine Sodium (Levothyroxine Sodium) 150 Mcg Tab, 150 MCG PO Q2D SYNTHROID BRAND ONLY PER PATIENT [remicade] , 1,200 MG IV ASDIRECTED Scheduled PRN Ibuprofen (Ibu-200) 200 Mg Tablet, 800 MG PO TID PRN for PAIN Allergies Coded Allergies: Sulfa (Sulfonamide Antibiotics) (Unverified Allergy, Unknown, 02/03/20) etanercept (Unverified Allergy, Unknown, 02/03/20) certolizumab pegol (Verified Adverse Reaction, Intermediate, ELEVATES LIVER ENZYMES, 02/03/20) tramadol (Verified Adverse Reaction, Mild, SHAKEY, 02/03/20) A-FIB/CHADSVASC A-FIB History Current/History of A-Fib/PAF?: No Attending Note I performed a history and physical examination of the patient and discussed the management with the resident. I have reviewed the resident's note ad agree with the documented findings and plan of care. BELINDA PITT DO Feb 03, 2020 17:18 RENATA BEST MD Feb 03, 2020 21:19
[2020-02-03] MEDS ORDERED: NS 1,000 ML IV SCH (17:30)
[2020-02-03 18:45] VITALS: BP 159/96
[2020-02-03] MEDS: metroNIDAZOLE 500 MG in IV 1 EA IV SCH (20:12)
[2020-02-03] MEDS: ONDANSETRON 4MG/2ML VIAL IV PRN (20:25)
[2020-02-03] MEDS: oxyCODONE 5MG TAB PO PRN (20:25)
[2020-02-03] MEDS ORDERED: IBUPROFEN 800 MG TAB PO PRN (21:30)
[2020-02-03] MEDS: allopurinoL 300 MG TAB PO SCH (21:32)
[2020-02-03 22:00] VITALS: BP 135/84
[2020-02-04] MEDS: oxyCODONE 5MG TAB PO PRN ×2 (00:49→05:04)
[2020-02-04] MEDS: metroNIDAZOLE 500 MG in IV 1 EA IV SCH ×3 (05:03→21:10)
[2020-02-04 06:00] VITALS: BP 111/73
[2020-02-04] MEDS ORDERED: LEVOTHYROXINE 150MCG TABLET (0.15MG) PO SCH ×2 (06:00)
--- NOTE | 2020-02-04 07:12 | REP ---
REASON FOR EXAM: Left lower quadrant pain. The only prior for comparison is a noncontrast enhanced examination of 01/23/2007. Contrast today 100 mL of Isovue 370. The lung bases are clear. The liver, spleen, pancreas, adrenal glands and kidneys are within normal limits. The abdominal aorta and paraaortic regions are within normal limits. No free fluid or free air is seen in the abdomen. There are a few gas and fluid-filled mildly dilated small bowel loops in the abdomen. See involving the distal descending colon and proximal sigmoid colon, There are multiple diverticula with rather marked pericolic fatty infiltration. No free fluid or free air is seen in the pelvis. There is no evidence of a pelvic mass or adenopathy. Bone window technique through the examination shows the osseous structures to be within normal limits. IMPRESSION: There is distal descending colon and proximal sigmoid colon diverticulitis. There is a mild concomitant probably reactive small bowel ileus. Electronically Signed by Viraj Domínguez DO 02/06/2020 10:50 A
[2020-02-04 08:23] LABS: BASO # 0.1 10^3/uL (0.0-0.2); BASO % 0.3 % (0.0-1.0); EOS # 0.4 10^3/uL (0.0-0.5); EOS % 2.7 % (0.0-3.0); HEMATOCRIT 44.5 % (42.0-52.0); HEMOGLOBIN 14.8 g/dl (13.5-17.5); LYMPH # 3.7 10^3/uL (1.5-5.0); LYMPH % 23.1 % (24.0-44.0); MEAN CORPUSCULAR HEMOGLOBIN 31.4 pg (27.0-33.0); MEAN CORPUSCULAR HGB CONC 33.3 g/dl (32.0-36.5); MEAN CORPUSCULAR VOLUME 94.3 fl (80.0-96.0); MONO # 2.2 10^3/uL (0.0-0.8); MONO % 13.8 % (0.0-5.0); NEUTROPHILS # 9.6 10^3/uL (1.5-8.5); NEUTROPHILS % 59.8 % (36.0-66.0); PLATELET COUNT, AUTOMATED 240 10^3/uL (150-450); RED BLOOD COUNT 4.72 10^6/uL (4.30-6.10); WHITE BLOOD COUNT 16.1 10^3/uL (4.0-10.0)
[2020-02-04] MEDS: FENOFIBRATE 145 MG TAB (TRICOR) PO SCH (08:25)
[2020-02-04] MEDS: LORATADINE 10 MG TAB PO SCH (08:25)
[2020-02-04 08:42] LABS: BLOOD UREA NITROGEN 8 MG/DL (7-18); CALCIUM LEVEL 7.9 MG/DL (8.5-10.1); CARBON DIOXIDE LEVEL 29 MEQ/L (21-32); CHLORIDE LEVEL 107 MEQ/L (98-107); CREATININE FOR GFR 0.88 MG/DL (0.70-1.30); GLOMERULAR FILTRATION RATE > 60.0 (>60); GLUCOSE, FASTING 99 MG/DL (70-100); POTASSIUM SERUM 3.6 MEQ/L (3.5-5.1); SODIUM LEVEL 141 MEQ/L (136-145)
--- NOTE | 2020-02-04 09:41 | IPNPDOC ---
Text Note Date of Service The patient was seen on 02/04/20. NOTE SUBJECTIVE: Patient had a fever spike last night with Tmax of 102. He continues to have left lower quadrant discomfort. No bowel movements but passing flatus. Not much appetite yet. PHYSICAL EXAMINATION: VITAL SIGNS: As below GENERAL APPEARANCE:. Patient is awake, alert and oriented, does not appear in acute distress. HEENT:, Atraumatic normocephalic. Eyes are nonicteric. Trachea is midline. mucous membranes are pink and moist. CARDIOVASCULAR: Normal S1, S2, regular rate and rhythm. No clicks, rubs or murmurs. LUNGS:. Clear vesicular breath sounds bilaterally. Good respiratory effort. No wheezes, rhonchi or rales. Symmetric chest expansion. ABDOMEN:. Soft, obese, nondistended, mild tenderness in the left lower quadrant. No rebound tenderness or guarding. Normoactive bowel sounds throughout EXTREMITIES: No edema. Full and equal pulses in bilateral upper and lower e xtremities. NEUROLOGICAL:. No focal neurological deficits. PSYCHIATRIC: Mood and affect appear appropriate. RADIOLOGY and LABORATORY DATA: reviewed. ASSESSMENT: A 49-year-old male with PMH of Rheumatoid arthritis on Remicade, Hypercholesteremia, obesity, Secondary Hypothyroidism due to total thyroidectomy for thyroid cancer, H/o kidney stones who presented to [facility] emergency department with complaint of left lower quadrant abdominal pain for 2 days and found to have left colonic diverticulitis. CT Abdomen shows distal descending colon and proximal sigmoid colon diverticulitis. There is a mild concomitant probably reactive small bowel ileus. Acute diverticulitis Patient has left clonic diverticulitis demonstrated on CT imaging. He has elevated white count. blood cultures. continue ceftriaxone and flagyl. pain and fever control with tylenol and ibuprofen, oxycodone Full liquid diet. Rheumatoid arthritis on Remicade Patient is on Remicade outpatient for rheumatoid arthritis. Currently his rheumatoid arthritis is not in acute flare. Hypothyroidism Patient is hypothyroidism secondary to thyroidectomy secondary to history of thyroid cancer. Will continue his Synthroid inpatient. Hyperlipidemia Will continue fenofibrate Hyperuricemia and kidney stones allopurinol. DVT prophylaxis Mechanical. VS,Fishbone, I+O VS, Fishbone, I+O Laboratory Tests 02/03/20 13:00 02/04/20 08:08 Vital Signs Date Time Temp Pulse Resp B/P (MAP) Pulse Ox O2 Delivery O2 Flow Rate FiO2 02/04/20 06:00 98.0 79 18 111/73 (86) 96 Room Air I&O- Last 24 Hours up to 6 AM 02/04/20 06:00 Intake Total 2410 ml Balance 2410 ml RENATA BEST MD Feb 04, 2020 09:41
[2020-02-04] MEDS: ONDANSETRON 4MG/2ML VIAL IV PRN (11:30)
[2020-02-04] MEDS ORDERED: PERCOCET 5MG/325MG TAB PO PRN ×2 (11:30)
[2020-02-04 14:00] VITALS: BP 109/71
[2020-02-04] MEDS ORDERED: cefTRIAXone SOD 2 GM in D5W MINI-BAG PLUS 50 ML IV SCH (21:00)
[2020-02-04 21:07] VITALS: BP 116/69
[2020-02-04] MEDS: allopurinoL 300 MG TAB PO SCH (22:40)
[2020-02-05] MEDS: metroNIDAZOLE 500 MG in IV 1 EA IV SCH (04:47)
[2020-02-05 06:00] VITALS: BP 119/81
[2020-02-05] MEDS ORDERED: LEVOTHYROXINE 88MCG TABLET (0.088 MG) PO SCH ×2 (06:00)
[2020-02-05 06:59] LABS: BASO # 0.1 10^3/uL (0.0-0.2); BASO % 0.3 % (0.0-1.0); EOS # 0.4 10^3/uL (0.0-0.5); EOS % 2.4 % (0.0-3.0); HEMATOCRIT 41.4 % (42.0-52.0); HEMOGLOBIN 13.5 g/dl (13.5-17.5); LYMPH # 4.1 10^3/uL (1.5-5.0); LYMPH % 28.3 % (24.0-44.0); MEAN CORPUSCULAR HEMOGLOBIN 30.3 pg (27.0-33.0); MEAN CORPUSCULAR HGB CONC 32.6 g/dl (32.0-36.5); MONO # 1.7 10^3/uL (0.0-0.8); MONO % 11.7 % (0.0-5.0); NEUTROPHILS # 8.2 10^3/uL (1.5-8.5); PLATELET COUNT, AUTOMATED 225 10^3/uL (150-450); RED BLOOD COUNT 4.45 10^6/uL (4.30-6.10); WHITE BLOOD COUNT 14.5 10^3/uL (4.0-10.0)
[2020-02-05 07:23] LABS: BLOOD UREA NITROGEN 7 MG/DL (7-18); CALCIUM LEVEL 7.9 MG/DL (8.5-10.1); CARBON DIOXIDE LEVEL 23 MEQ/L (21-32); CHLORIDE LEVEL 107 MEQ/L (98-107); CREATININE FOR GFR 0.76 MG/DL (0.70-1.30); GLOMERULAR FILTRATION RATE > 60.0 (>60); GLUCOSE, FASTING 91 MG/DL (70-100); POTASSIUM SERUM 3.3 MEQ/L (3.5-5.1); SODIUM LEVEL 139 MEQ/L (136-145)
[2020-02-05] MEDS: LORATADINE 10 MG TAB PO SCH (08:35)
[2020-02-05] MEDS: FENOFIBRATE 145 MG TAB (TRICOR) PO SCH (08:35)
[2020-02-05] MEDS ORDERED: FLAG500T PO (08:52)
[2020-02-05] MEDS ORDERED: CEFD300CAP PO (08:52)
[2020-02-05] MEDS ORDERED: metroNIDAZOLE (FLAGYL) 500 MG TAB PO SCH (09:00)
[2020-02-05] MEDS ORDERED: POTASSIUM CHLORIDE 10 MEQ SR TABLET PO ONE (10:00)
--- NOTE | 2020-02-05 10:50 | DS.PDOC ---
Discharge Summary General Date of Admission Feb 03, 2020 at 17:38 Date of Discharge 02/05/20 Discharge Summary PROCEDURES PERFORMED DURING STAY: [None]. DISCHARGE DIAGNOSES: Acute diverticulitis. SECONDARY DIAGNOSIS: Rheumatoid arthritis on Remicade, Hypercholesteremia, obesity, Secondary Hypothyroidism due to total thyroidectomy for thyroid cancer, H/o kidney stones COMPLICATIONS/CHIEF COMPLAINT: Diverticulitis Rheumatoid Arthritis. HISTORY OF PRESENT ILLNESS: See history and physical HOSPITAL COURSE: RADIOLOGY and LABORATORY DATA: reviewed. ASSESSMENT: A 49-year-old male with PMH of Rheumatoid arthritis on Remicade, Hypercholesteremia, obesity, Secondary Hypothyroidism due to total thyroidectomy for thyroid cancer, H/o kidney stones who presented to [facility] emergency department with complaint of left lower quadrant abdominal pain for 2 days and found to have left colonic diverticulitis. CT Abdomen shows distal descending colon and proximal sigmoid colon diverticulitis. There is a mild concomitant probably reactive small bowel ileus.. Admitted for acute diverti culitis. Acute diverticulitis Patient has left clonic diverticulitis demonstrated on CT imaging. He has elevated white count. blood cultures negative till date continue ceftriaxone and flagyl. pain controlled with tylenol and ibuprofen, low fiber diet. Rheumatoid arthritis on Remicade Patient is on Remicade outpatient for rheumatoid arthritis. Currently his rheumatoid arthritis is not in acute flare. Hypothyroidism Patient is hypothyroidism secondary to thyroidectomy secondary to history of thyroid cancer. Will continue his Synthroid inpatient. Hyperlipidemia Will continue fenofibrate Hyperuricemia and kidney stones allopurinol. DVT prophylaxis Mechanical. DISCHARGE MEDICATIONS: Please see below. ALLERGIES: Please see below. PHYSICAL EXAMINATION ON DISCHARGE: VITAL SIGNS: Please see below. GENERAL APPEARANCE:. Patient is awake, alert and oriented, does not appear in acute distress. HEENT:, Atraumatic normocephalic. Eyes are nonicteric. Trachea is midline. mucous membranes are pink and moist. CARDIOVASCULAR: Normal S1, S2, regular rate and rhythm. No clicks, rubs or mur murs. LUNGS:. Clear vesicular breath sounds bilaterally. Good respiratory effort. No wheezes, rhonchi or rales. Symmetric chest expansion. ABDOMEN:. Soft, obese, nondistended, mild tenderness in the left lower quadrant. No rebound tenderness or guarding. Normoactive bowel sounds throughout EXTREMITIES: No edema. Full and equal pulses in bilateral upper and lower extremities. NEUROLOGICAL:. No focal neurological deficits. PSYCHIATRIC: Mood and affect appear appropriate. LABORATORY DATA: Please see below. ACTIVITY: [As tolerated]. DIET: Low fiber diet. DISCHARGE PLAN: Home DISCHARGE INSTRUCTIONS: follow up PMD in 1 week DISCHARGE CONDITION: [Stable]. TIME SPENT ON DISCHARGE: 35 minutes. Vital Signs/I&Os Vital Signs Date Time Temp Pulse Resp B/P (MAP) Pulse Ox O2 Delivery O2 Flow Rate FiO2 02/05/20 06:00 99.2 89 18 119/81 (94) 95 Room Air I&O- Last 24 Hours up to 6 AM 02/05/20 06:00 Intake Total 1270 ml Output Total 0 ml Balance 1270 ml Laboratory Data Labs 24H Laboratory Tests 2 02/05/20 06:36: Immature Granulocyte % (Auto) 0.3, Neutrophils (%) (Auto) 57.0, Lymphocytes (%) (Auto) 28.3, Monocytes (%) (Auto) 11.7H, Eosinophils (%) (Auto) 2.4, Basophils (%) (Auto) 0.3, Neutrophils # (Auto) 8.2, Lymphocytes # (Auto) 4.1, Monocytes # (Auto) 1.7H, Eosinophils # (Auto) 0.4, Basophils # (Auto) 0.1, Nucleated Red Blood Cells % (auto) 0.0, Anion Gap 9, Glomerular Filtration Rate > 60.0, Calcium Level 7.9L CBC/BMP Laboratory Tests 02/05/20 06:36 Microbiology Microbiology 02/04/20 Blood Culture, Received Pending 02/04/20 Blood Culture, Received Pending Discharge Medications Scheduled Allopurinol (Zyloprim) 300 Mg Tablet, 300 MG PO QHS, (Reported) Cefdinir (Cefdinir) 300 Mg Capsule, 1 CAP PO BID Fenofibrate Nanocrystallized (Tricor) 145 Mg Tablet, 145 MG PO DAILY, (Reported) Levothyroxine Sodium (Levothyroxine Sodium) 175 Mcg Tab, 175 MCG PO Q2D, (Reported) SYNTHROID BRAND ONLY PER PATIENT Levothyroxine Sodium (Levothyroxine Sodium) 150 Mcg Tab, 150 MCG PO Q2D, (Reported) SYNTHROID BRAND ONLY PER PATIENT Metronidazole (Flagyl) 500 Mg Tablet, 500 MG PO TID [remicade] , 1,200 MG IV ASDIRECTED, (Reported) Scheduled PRN Ibuprofen (Ibu-200) 200 Mg Tablet, 800 MG PO TID PRN for PAIN, (Reported) Allergies Coded Allergies: Sulfa (Sulfonamide Antibiotics) (Unverified Allergy, Unknown, 02/03/20) etanercept (Unverified Allergy, Unknown, 02/03/20) certolizumab pegol (Verified Adverse Reaction, Intermediate, ELEVATES LIVER ENZYMES, 02/03/20) tramadol (Verified Adverse Reaction, Mild, SHAKEY, 02/03/20) RENATA BEST MD Feb 05, 2020 10:50
[2020-02-05] MEDS ORDERED: cefTRIAXone SOD 2 GM in D5W MINI-BAG PLUS 50 ML IV SCH (12:00)
== END 2020-02-05 12:00 | disposition home or self-care (01) | DRG 244 ==
LOC: M ED 12:38 → M ED INP 17:38 → ENRESERV 18:04 → M MS5PR 18:41
PROVIDERS: ADMIT Internal Medicine Nephrology; ATTEND Internal Medicine Nephrology
DX: K57.32 Diverticulitis of large intestine without perforation or abscess without bleeding (principal); E89.0 Postprocedural hypothyroidism; M06.9 Rheumatoid arthritis, unspecified; E78.5 Hyperlipidemia, unspecified; E66.9 Obesity, unspecified; Z87.442 Personal history of urinary calculi; Z85.850 Personal history of malignant neoplasm of thyroid; Z96.653 Presence of artificial knee joint, bilateral; Z79.899 Other long term (current) drug therapy; Z88.2 Allergy status to sulfonamides; Z88.8 Allergy status to other drugs, medicaments and biological substances; Z88.5 Allergy status to narcotic agent; E79.0 Hyperuricemia without signs of inflammatory arthritis and tophaceous disease; Z68.36 Body mass index [BMI] 36.0-36.9, adult

== ENCOUNTER 2020-02-29 11:59 | Outpatient (CLI) | payer BC ==
[~2020-02-29] VITALS: Ht 175.3 cm; Wt 111.3 kg
[~2020-02-29 11:59] MED LIST changes: +CEFD300CAP PO; +FLAG500T PO; +IBUP200T45 PO; +ZYLO300T6 PO
[2020-02-29 12:10] VITALS: BP 153/85
[2020-02-29] MEDS ORDERED: ACETAMINOPHEN 650MG PO PRIOR TO INFUSION PO ONE (12:30)
[2020-02-29] MEDS ORDERED: INFLIXIMAB IV ONE (12:30)
[2020-02-29] MEDS ORDERED: NS 1,000 ML IV SCH (12:30)
[2020-02-29] MEDS ORDERED: NS IV ONE (12:30)
[2020-02-29 13:12] VITALS: BP 153/85
[2020-02-29 15:05] VITALS: BP 120/70
== END 2020-02-29 15:20 | disposition home or self-care (01) ==
LOC: M INFU 11:59
PROVIDERS: ATTEND Internal Medicine Rheumatology
DX: M05.79 Rheumatoid arthritis with rheumatoid factor of multiple sites without organ or systems involvement (principal)
CPT/HCPCS: 96413; 96415; J1745

== ENCOUNTER 2020-04-11 12:00 | Outpatient (CLI) | payer BC ==
[~2020-04-11 12:00] MED LIST changes: +inFLIXimab 100MG/10ML VIAL (REMICADE) J1745 PER 10MG ONE
== END 2020-04-11 13:30 | disposition home or self-care (01) ==
LOC: M INFU 12:00
PROVIDERS: ATTEND Internal Medicine Rheumatology
DX: M06.9 Rheumatoid arthritis, unspecified (principal)
CPT/HCPCS: 96413; 96415; J1745

== ENCOUNTER → 2020-10-17 | Outpatient (REF) | payer BC ==
[~2020-10-17] MED LIST changes: -inFLIXimab 100MG/10ML VIAL (REMICADE) J1745 PER 10MG ONE
[2020-10-17 13:20] LABS: BASO % 0.3 % (0.0-1.0); EOS # 0.3 10^3/uL (0.0-0.5); EOS % 4.3 % (0.0-3.0); HEMATOCRIT 42.3 % (42.0-52.0); HEMOGLOBIN 13.5 g/dl (13.5-17.5); LYMPH # 3.6 10^3/uL (1.5-5.0); LYMPH % 46.2 % (24.0-44.0); MEAN CORPUSCULAR HEMOGLOBIN 30.1 pg (27.0-33.0); MEAN CORPUSCULAR HGB CONC 31.9 g/dl (32.0-36.5); MEAN CORPUSCULAR VOLUME 94.4 fl (80.0-96.0); MONO # 0.6 10^3/uL (0.0-0.8); NEUTROPHILS # 3.2 10^3/uL (1.5-8.5); NEUTROPHILS % 40.9 % (36.0-66.0); PLATELET COUNT, AUTOMATED 208 10^3/uL (150-450); RED BLOOD COUNT 4.48 10^6/uL (4.30-6.10); WHITE BLOOD COUNT 7.7 10^3/uL (4.0-10.0)
[2020-10-17 13:59] LABS: ALBUMIN 3.9 GM/DL (3.2-5.2); ALT/SGPT 32 U/L (12-78); BILIRUBIN,TOTAL 0.6 MG/DL (0.2-1.0); BLOOD UREA NITROGEN 16 MG/DL (7-18); CARBON DIOXIDE LEVEL 28 MEQ/L (21-32); CHLORIDE LEVEL 106 MEQ/L (98-107); CHOLESTEROL LEVEL 175 MG/DL (<200); CHOLESTEROL RISK RATIO 3.723 (<5); CREATININE FOR GFR 0.86 MG/DL (0.70-1.30); FREE T4 1.29 NG/DL (0.76-1.46); GLOMERULAR FILTRATION RATE > 60.0 (>60); GLUCOSE, FASTING 90 MG/DL (70-100); HDL CHOLESTEROL 47 MG/DL (>40); LDL CHOLESTEROL 114 MG/DL (<100); NON-HDL-C 128 MG/DL; POTASSIUM SERUM 4.2 MEQ/L (3.5-5.1); SODIUM LEVEL 141 MEQ/L (136-145); THYROID STIMULATING HORMONE 0.687 uIU/ML (0.358-3.740); TOTAL PROTEIN 7.2 GM/DL (6.4-8.2); TRIGLYCERIDES LEVEL 72 MG/DL (<150)
[2020-10-17 15:04] LABS: HEMOGLOBIN A1c 5.4 %
[2020-10-19 09:07] LABS: THRYOGLOBULIN ANTIBODIES (ATA) < 1.0 IU/mL (0.0-0.9); THYROGLOBULIN QUANTITATIVE < 0.1 ng/mL (1.4-29.2)
== END ==
LOC: M SFHCPLAZ 09:55
PROVIDERS: ATTEND Physician Assistant Medical
DX: C73 Malignant neoplasm of thyroid gland (principal); Z13.1 Encounter for screening for diabetes mellitus; E78.2 Mixed hyperlipidemia; Z12.5 Encounter for screening for malignant neoplasm of prostate; M05.761 Rheumatoid arthritis with rheumatoid factor of right knee without organ or systems involvement

== ENCOUNTER 2020-12-14 12:52 | Emergency (ER) | payer BC ==
[~2020-12-14] VITALS: Ht 175.3 cm; Wt 93.8 kg
--- NOTE | 2020-12-14 13:45 | REP ---
INDICATION: CHEST PAIN. COMPARISON: Multiple the latest 02/08/2016 a portable exam TECHNIQUE: Portable FINDINGS: The technique utilized in obtaining the radiograph has magnified the cardiac silhouette and accentuated the interstitial markings. The superior mediastinal structures are midline. The cardiac silhouette is unremarkable in size, shape, and position. The diaphragmatic surfaces of the lungs are regular, and the costophrenic angles are clear. The pulmonary zamora are clear. The imaged osseous structures are intact. IMPRESSION: There is no acute cardiopulmonary disease. <Electronically signed by Viraj Domínguez > 12/14/20 [id number]
[2020-12-14 14:17] LABS: ALT/SGPT 28 U/L (12-78); BILIRUBIN,DIRECT 0.2 MG/DL (0.0-0.2); BILIRUBIN,TOTAL 0.4 MG/DL (0.2-1.0); BLOOD UREA NITROGEN 18 MG/DL (7-18); CALCIUM LEVEL 9.7 MG/DL (8.5-10.1); CARBON DIOXIDE LEVEL 27 MEQ/L (21-32); CHLORIDE LEVEL 108 MEQ/L (98-107); CK-MB VALUE MASS < 1.0 NG/ML (<3.6); CPK CREATINE PHOSPHOKINASE 124 U/L (39-308); CREATININE FOR GFR 0.84 MG/DL (0.70-1.30); GLOMERULAR FILTRATION RATE > 60.0 (>60); GLUCOSE, FASTING 99 MG/DL (70-100); LIPASE 51 U/L (73-393); MB/CK RELATIVE INDEX 0.81 (< OR =4); POTASSIUM SERUM 3.7 MEQ/L (3.5-5.1); SODIUM LEVEL 140 MEQ/L (136-145); TOTAL PROTEIN 7.4 GM/DL (6.4-8.2); TROPONIN I < 0.02 NG/ML (< 0.10)
[2020-12-14 15:29] LABS: HEMOGLOBIN 14.7 g/dl (13.5-17.5); MEAN CORPUSCULAR HEMOGLOBIN 31.6 pg (27.0-33.0); MEAN CORPUSCULAR HGB CONC 33.4 g/dl (32.0-36.5); MEAN CORPUSCULAR VOLUME 94.6 fl (80.0-96.0); PLATELET COUNT, AUTOMATED 227 10^3/uL (150-450); RED BLOOD COUNT 4.65 10^6/uL (4.30-6.10); WHITE BLOOD COUNT 6.8 10^3/uL (4.0-10.0)
[2020-12-14 16:03] VITALS: BP 118/93
--- NOTE | 2020-12-14 19:56 | ECGEPIP ---
[facility] - ED Test Date: 2020-12-14 Pat Name: LEBRON WASHBURN Department: Room: - Gender: Male Incident Manager: ISHAAN : [id number] Requested By: TOM Snider Order Number: [id number] Reading MD: Briseyda Perez Measurements Intervals [place] Rate: 77 P: 43 VT: 158 QRS: 9 QRSD: 78 T: 29 QT: 364 QTc: 411 Interpretive Statements Sinus rhythm with premature atrial complexes increased rate 02/17/16 Electronically Signed on 12-14-2020 19:57:41 EDT by Briseyda Perez
== END 2020-12-14 16:05 | disposition home or self-care (01) ==
LOC: M ED 12:52
DX: I49.9 Cardiac arrhythmia, unspecified (principal); E07.9 Disorder of thyroid, unspecified; Z79.899 Other long term (current) drug therapy; Z79.890 Hormone replacement therapy; Z88.1 Allergy status to other antibiotic agents; Z88.2 Allergy status to sulfonamides; Z88.5 Allergy status to narcotic agent; Z88.8 Allergy status to other drugs, medicaments and biological substances; F17.210 Nicotine dependence, cigarettes, uncomplicated

== ENCOUNTER → 2021-11-27 | Outpatient (CLI) | payer BC ==
[~2021-11-27] MED LIST changes: -IBUP200T45 PO; +IBUP200T46 PO; +ISOVUE-370 76% 100ML VIAL As Ordered ONE
== END ==
LOC: M RAD 17:21
PROVIDERS: ATTEND Physician Assistant Medical
DX: R06.09 Other forms of dyspnea (principal)
CPT/HCPCS: 71275; Q9967

== ENCOUNTER → 2021-11-27 | Outpatient (CLI) | payer BC ==
[~2021-11-27] MED LIST changes: -ISOVUE-370 76% 100ML VIAL As Ordered ONE
[2021-11-27 14:00] LABS: BASO % 0.3 % (0.0-1.0); EOS # 0.3 10^3/uL (0.0-0.5); EOS % 3.4 % (0.0-3.0); HEMATOCRIT 41.9 % (42.0-52.0); HEMOGLOBIN 13.9 g/dl (13.5-17.5); LYMPH # 3.6 10^3/uL (1.5-5.0); LYMPH % 41.2 % (24.0-44.0); MEAN CORPUSCULAR HEMOGLOBIN 31.1 pg (27.0-33.0); MEAN CORPUSCULAR HGB CONC 33.2 g/dl (32.0-36.5); MEAN CORPUSCULAR VOLUME 93.7 fl (80.0-96.0); MONO # 0.8 10^3/uL (0.0-0.8); MONO % 9.6 % (2.0-8.0); PLATELET COUNT, AUTOMATED 198 10^3/uL (150-450); RED BLOOD COUNT 4.47 10^6/uL (4.30-6.10); WHITE BLOOD COUNT 8.8 10^3/uL (4.0-10.0)
[2021-11-27 14:40] LABS: ERYTHROCYTE SEDIMENTATION RATE 10 mm/hr (0-15)
[2021-11-27 14:57] LABS: ALBUMIN 4.3 GM/DL (3.2-5.2); ALT/SGPT 40 U/L (12-78); BILIRUBIN,TOTAL 0.6 MG/DL (0.2-1.0); BLOOD UREA NITROGEN 21 MG/DL (7-18); C REACTIVE PROTEIN QUANTITATIV 0.36 MG/DL (0.00-0.30); CARBON DIOXIDE LEVEL 28 MEQ/L (21-32); CHLORIDE LEVEL 107 MEQ/L (98-107); CREATININE FOR GFR 1.04 MG/DL (0.70-1.30); FREE T4 1.53 NG/DL (0.76-1.46); GLOMERULAR FILTRATION RATE > 60.0 (>60); GLUCOSE, FASTING 85 MG/DL (70-100); POTASSIUM SERUM 3.4 MEQ/L (3.5-5.1); SODIUM LEVEL 140 MEQ/L (136-145); THYROID STIMULATING HORMONE 0.262 uIU/ML (0.358-3.740); TOTAL PROTEIN 7.6 GM/DL (6.4-8.2)
[2021-11-27 16:11] LABS: HEMOGLOBIN A1c 5.3 %
== END ==
LOC: M PLAIMG 09:03
PROVIDERS: ATTEND Physician Assistant Medical
DX: Z13.1 Encounter for screening for diabetes mellitus (principal); C73 Malignant neoplasm of thyroid gland; R06.09 Other forms of dyspnea

== ENCOUNTER → 2022-05-13 | Outpatient (CLI) | payer BC ==
[~2022-05-13] MED LIST changes: +ISOVUE-370 76% 100ML VIAL As Ordered ONE
== END ==
LOC: M RAD 08:04
PROVIDERS: ATTEND Physician Assistant Medical
DX: J98.59 Other diseases of mediastinum, not elsewhere classified (principal)
CPT/HCPCS: 71260; Q9967

== ENCOUNTER → 2022-07-07 | Outpatient (CLI) | payer BC ==
[~2022-07-07] MED LIST changes: -ISOVUE-370 76% 100ML VIAL As Ordered ONE
== END ==
LOC: M PLALAB 12:39
DX: D38.3 Neoplasm of uncertain behavior of mediastinum (principal)

== ENCOUNTER → 2022-07-15 | Outpatient (CLI) | payer BC ==
[2022-07-17 12:08] LABS: THRYOGLOBULIN ANTIBODIES (ATA) < 1.0 IU/mL (0.0-0.9); THYROGLOBULIN QUANTITATIVE < 0.1 ng/mL (1.4-29.2)
== END ==
LOC: M PLALAB 12:58
PROVIDERS: ATTEND Surgery
DX: J98.59 Other diseases of mediastinum, not elsewhere classified (principal)

== ENCOUNTER → 2022-10-12 | Outpatient (CLI) | payer BC | LOC: M LABSMTC 11:13 | PROVIDERS: ATTEND Surgery | DX: J98.59 Other diseases of mediastinum, not elsewhere classified (principal); Z01.818 Encounter for other preprocedural examination ==

== ENCOUNTER → 2022-10-31 | Outpatient (CLI) | payer BC | LOC: M PLAIMG 11:20 | PROVIDERS: ATTEND Nurse Practitioner Family | DX: J84.9 Interstitial pulmonary disease, unspecified (principal); E32.0 Persistent hyperplasia of thymus ==

== ENCOUNTER → 2023-05-18 | Outpatient (CLI) | payer BC ==
[2023-05-18 17:51] LABS: BASO % 0.4 % (0.0-1.0); EOS # 0.4 10^3/uL (0.0-0.5); EOS % 5.6 % (0.0-3.0); HEMATOCRIT 42.6 % (42.0-52.0); HEMOGLOBIN 13.9 g/dl (13.5-17.5); LYMPH # 3.3 10^3/uL (1.5-5.0); LYMPH % 42.8 % (24.0-44.0); MEAN CORPUSCULAR HEMOGLOBIN 30.7 pg (27.0-33.0); MEAN CORPUSCULAR HGB CONC 32.6 g/dl (32.0-36.5); MONO # 0.8 10^3/uL (0.0-0.8); NEUTROPHILS # 3.2 10^3/uL (1.5-8.5); NEUTROPHILS % 40.9 % (36.0-66.0); PLATELET COUNT, AUTOMATED 240 10^3/uL (150-450); RED BLOOD COUNT 4.53 10^6/uL (4.30-6.10); WHITE BLOOD COUNT 7.8 10^3/uL (4.0-10.0)
[2023-05-18 18:11] LABS: THYROID STIMULATING HORMONE 0.035 uIU/ML (0.55-4.78)
[2023-05-18 18:12] LABS: CPK CREATINE PHOSPHOKINASE 119 U/L (46-171)
[2023-05-18 18:13] LABS: ALKALINE PHOSPHATASE 76 U/L (46-116); ALT/SGPT 24 U/L (7.0-40); AST/SGOT 20 U/L (<34); BILIRUBIN,TOTAL 0.7 MG/DL (0.3-1.2); BLOOD UREA NITROGEN 21 MG/DL (9-23); CALCIUM LEVEL 8.8 MG/DL (8.5-10.1); CARBON DIOXIDE LEVEL 27 MMOL/L (20-31); CHLORIDE LEVEL 107 MMOL/L (98-107); CHOLESTEROL LEVEL 163 MG/DL (<200); CREATININE FOR GFR 0.89 MG/DL (0.70-1.30); FREE T4 1.64 NG/DL (0.89-1.76); GLOMERULAR FILTRATION RATE > 60.0 (>56); GLUCOSE, FASTING 84 MG/DL (60-100); POTASSIUM SERUM 4.1 MMOL/L (3.5-5.1); SODIUM LEVEL 142 MMOL/L (136-145); TOTAL PROTEIN 7.1 G/DL (5.7-8.2); TRIGLYCERIDES LEVEL 105 MG/DL (<150)
== END ==
LOC: M PLALAB 13:53
PROVIDERS: ATTEND Physician Assistant Medical
DX: Z12.5 Encounter for screening for malignant neoplasm of prostate (principal); C73 Malignant neoplasm of thyroid gland; E78.2 Mixed hyperlipidemia; N20.0 Calculus of kidney

== ENCOUNTER → 2024-01-19 | Outpatient (CLI) | payer BC ==
[~2024-01-19] MED LIST changes: +METHACHOLINE KIT (6 VIAL.NEB PREMIX) INH ONE
== END ==
LOC: M CARPUL 13:04
PROVIDERS: ATTEND Internal Medicine Pulmonary Disease
DX: J45.20 Mild intermittent asthma, uncomplicated (principal)
CPT/HCPCS: 94070; 95070; J7674

== ENCOUNTER → 2024-02-01 | Outpatient (CLI) | payer BC ==
[~2024-02-01] MED LIST changes: -METHACHOLINE KIT (6 VIAL.NEB PREMIX) INH ONE
[2024-02-01 15:35] LABS: BASO % 0.4 % (0.0-1.0); EOS # 0.4 10^3/uL (0.0-0.5); HEMATOCRIT 40.5 % (42.0-52.0); HEMOGLOBIN 13.3 g/dl (13.5-17.5); LYMPH # 2.9 10^3/uL (1.5-5.0); LYMPH % 37.1 % (24.0-44.0); MEAN CORPUSCULAR HEMOGLOBIN 31.1 pg (27.0-33.0); MEAN CORPUSCULAR HGB CONC 32.8 g/dl (32.0-36.5); MEAN CORPUSCULAR VOLUME 94.8 fl (80.0-96.0); MONO # 0.7 10^3/uL (0.0-0.8); MONO % 8.9 % (2.0-8.0); NEUTROPHILS # 3.8 10^3/uL (1.5-8.5); NEUTROPHILS % 48.3 % (36.0-66.0); PLATELET COUNT, AUTOMATED 226 10^3/uL (150-450); RED BLOOD COUNT 4.27 10^6/uL (4.30-6.10); WHITE BLOOD COUNT 7.9 10^3/uL (4.0-10.0)
[2024-02-01 15:40] LABS: ERYTHROCYTE SEDIMENTATION RATE 17 mm/hr (0-20)
[2024-02-01 16:01] LABS: PSA SCREENING 0.37 NG/ML (< 4.00)
[2024-02-01 16:02] LABS: C REACTIVE PROTEIN QUANTITATIV < 0.40 MG/DL (<1.0)
[2024-02-01 16:04] LABS: ALBUMIN 3.9 G/DL (3.2-5.2); ALKALINE PHOSPHATASE 78 U/L (46-116); ALT/SGPT 26 U/L (7.0-40); AST/SGOT 21 U/L (<34); BILIRUBIN,TOTAL 0.5 MG/DL (0.3-1.2); BLOOD UREA NITROGEN 15 MG/DL (9-23); CARBON DIOXIDE LEVEL 30 MMOL/L (20-31); CHLORIDE LEVEL 110 MMOL/L (98-107); CHOLESTEROL LEVEL 175 MG/DL (<200); CHOLESTEROL RISK RATIO 3.32 (<5); CREATININE FOR GFR 0.86 MG/DL (0.70-1.30); FREE T4 1.39 NG/DL (0.89-1.76); GLOMERULAR FILTRATION RATE > 60.0 (>56); GLUCOSE, FASTING 84 MG/DL (60-100); HDL CHOLESTEROL 52.7 MG/DL (>40); LDL CHOLESTEROL 106.7 MG/DL (<100); NON-HDL-C 122.3 MG/DL; POTASSIUM SERUM 4.2 MMOL/L (3.5-5.1); SODIUM LEVEL 142 MMOL/L (136-145); TOTAL PROTEIN 6.9 G/DL (5.7-8.2); TRIGLYCERIDES LEVEL 78 MG/DL (<150)
[2024-02-01 16:05] LABS: THYROID STIMULATING HORMONE 0.099 uIU/ML (0.55-4.78)
[2024-02-01 16:13] LABS: HEMOGLOBIN A1c 5.1 % (4.0-6.0)
== END ==
LOC: M PLALAB 13:45
PROVIDERS: ATTEND Physician Assistant Medical
DX: M05.761 Rheumatoid arthritis with rheumatoid factor of right knee without organ or systems involvement (principal); M05.762 Rheumatoid arthritis with rheumatoid factor of left knee without organ or systems involvement; R06.09 Other forms of dyspnea; N20.0 Calculus of kidney; Z13.1 Encounter for screening for diabetes mellitus; C73 Malignant neoplasm of thyroid gland; E78.2 Mixed hyperlipidemia; Z12.5 Encounter for screening for malignant neoplasm of prostate; J30.9 Allergic rhinitis, unspecified

== ENCOUNTER → 2024-03-24 | Outpatient (CLI) | payer BC ==
[2024-03-24 16:47] LABS: APPEARANCE, URINE HAZY (CLEAR); BACTERIA, URINE AUTO NEGATIVE (NEGATIVE); BILIRUBIN, URINE AUTO NEGATIVE (NEGATIVE); BLOOD, URINE BLOOD NEGATIVE (NEGATIVE); COLOR, URINE AMBER (YELLOW); GLUCOSE, URINE (UA) AUTO NEGATIVE (NEGATIVE); KETONE, URINE AUTO TRACE mg/dL (NEGATIVE); LEUKOCYTE ESTERASE, URINE AUTO NEGATIVE (NEGATIVE); MUCUS, URINE LARGE (NEGATIVE); NITRITE, URINE AUTO NEGATIVE (NEGATIVE); PROTEIN, URINE AUTO 1+ mg/dL (NEGATIVE); RBC, URINE AUTO 0 /HPF (0-3); SPECIFIC GRAVITY URINE AUTO 1.025 (1.002-1.035); SQUAMOUS EPITHELIAL CELL UR AU 0 /HPF (0-6); WBC, URINE AUTO 0 /HPF (0-3)
[2024-03-24 17:55] LABS: HEMATOCRIT 43.2 % (42.0-52.0); HEMOGLOBIN 14.3 g/dl (13.5-17.5); MEAN CORPUSCULAR HEMOGLOBIN 30.6 pg (27.0-33.0); MEAN CORPUSCULAR HGB CONC 33.1 g/dl (32.0-36.5); MEAN CORPUSCULAR VOLUME 92.5 fl (80.0-96.0); RED BLOOD COUNT 4.67 10^6/uL (4.30-6.10); WHITE BLOOD COUNT 7.7 10^3/uL (4.0-10.0)
[2024-03-24 18:06] LABS: ERYTHROCYTE SEDIMENTATION RATE 88 mm/hr (0-20)
[2024-03-24 18:10] LABS: ALBUMIN 4.1 G/DL (3.2-5.2); ALKALINE PHOSPHATASE 74 U/L (46-116); ALT/SGPT 34 U/L (7.0-40); AST/SGOT 27 U/L (<34); BILIRUBIN,TOTAL 0.9 MG/DL (0.3-1.2); BLOOD UREA NITROGEN 16 MG/DL (9-23); CALCIUM LEVEL 8.9 MG/DL (8.5-10.1); CARBON DIOXIDE LEVEL 24 MMOL/L (20-31); CHLORIDE LEVEL 101 MMOL/L (98-107); CREATININE FOR GFR 0.99 MG/DL (0.70-1.30); GLOMERULAR FILTRATION RATE > 60.0 (>56); GLUCOSE, FASTING 91 MG/DL (60-100); SODIUM LEVEL 135 MMOL/L (136-145); TOTAL PROTEIN 7.8 G/DL (5.7-8.2)
[2024-03-24 18:13] LABS: FREE T4 1.42 NG/DL (0.89-1.76); THYROID STIMULATING HORMONE 0.042 uIU/ML (0.55-4.78)
[2024-03-24 18:25] LABS: PLATELET COUNT, AUTOMATED 111 10^3/uL (150-450)
[2024-03-24 18:29] LABS: ATYPICAL LYMPH 9 % (0-5); LYMPHOCYTES 40 % (16-44); MONOCYTES 13 % (0-5); NEUTROPHILS 38 % (28-66)
[2024-03-24 18:30] LABS: PLATELET ESTIMATE DECREASED (NORMAL)
== END ==
LOC: M LAB 15:59
PROVIDERS: ATTEND Physician Assistant Medical
DX: R50.9 Fever, unspecified (principal); C73 Malignant neoplasm of thyroid gland

== ENCOUNTER → 2024-05-12 | Outpatient (CLI) | payer BC ==
[2024-05-12 17:54] LABS: BASO % 0.4 % (0.0-1.0); EOS # 0.3 10^3/uL (0.0-0.5); EOS % 3.7 % (0.0-3.0); HEMATOCRIT 41.5 % (42.0-52.0); HEMOGLOBIN 13.3 g/dl (13.5-17.5); LYMPH # 3.2 10^3/uL (1.5-5.0); LYMPH % 40.2 % (24.0-44.0); MEAN CORPUSCULAR HEMOGLOBIN 30.4 pg (27.0-33.0); MONO # 0.7 10^3/uL (0.0-0.8); MONO % 8.4 % (2.0-8.0); NEUTROPHILS # 3.7 10^3/uL (1.5-8.5); NEUTROPHILS % 47.2 % (36.0-66.0); PLATELET COUNT, AUTOMATED 230 10^3/uL (150-450); RED BLOOD COUNT 4.37 10^6/uL (4.30-6.10); WHITE BLOOD COUNT 7.9 10^3/uL (4.0-10.0)
[2024-05-12 17:57] LABS: C REACTIVE PROTEIN QUANTITATIV < 0.40 MG/DL (<1.0)
[2024-05-12 17:58] LABS: ALBUMIN 4.2 G/DL (3.2-5.2); ALKALINE PHOSPHATASE 65 U/L (46-116); ALT/SGPT 21 U/L (7.0-40); AST/SGOT 15 U/L (<34); BILIRUBIN,TOTAL 0.5 MG/DL (0.3-1.2); BLOOD UREA NITROGEN 19 MG/DL (9-23); CALCIUM LEVEL 9.2 MG/DL (8.5-10.1); CARBON DIOXIDE LEVEL 31 MMOL/L (20-31); CHLORIDE LEVEL 108 MMOL/L (98-107); CHOLESTEROL LEVEL 195 MG/DL (<200); CHOLESTEROL RISK RATIO 3.56 (<5); CREATININE FOR GFR 0.91 MG/DL (0.70-1.30); GLOMERULAR FILTRATION RATE > 60.0 (>56); GLUCOSE, FASTING 75 MG/DL (60-100); HDL CHOLESTEROL 54.7 MG/DL (>40); LDL CHOLESTEROL 124.9 MG/DL (<100); NON-HDL-C 140.3 MG/DL; POTASSIUM SERUM 3.8 MMOL/L (3.5-5.1); SODIUM LEVEL 141 MMOL/L (136-145); TOTAL PROTEIN 7.3 G/DL (5.7-8.2); TRIGLYCERIDES LEVEL 77 MG/DL (<150)
[2024-05-12 18:00] LABS: FREE T4 1.56 NG/DL (0.89-1.76); THYROID STIMULATING HORMONE 0.256 uIU/ML (0.55-4.78)
[2024-05-12 18:32] LABS: ERYTHROCYTE SEDIMENTATION RATE 15 mm/hr (0-20)
== END ==
LOC: M PLALAB 14:34
PROVIDERS: ATTEND Physician Assistant Medical
DX: M05.761 Rheumatoid arthritis with rheumatoid factor of right knee without organ or systems involvement (principal); C73 Malignant neoplasm of thyroid gland; M05.762 Rheumatoid arthritis with rheumatoid factor of left knee without organ or systems involvement; E78.2 Mixed hyperlipidemia

== ENCOUNTER → 2025-05-18 | Outpatient (REF) | payer BC ==
[2025-05-18 15:51] LABS: BASO # 0.0 10^3/uL (0.0-0.2); BASO % 0.5 % (0.0-1.0); EOS # 0.3 10^3/uL (0.0-0.5); EOS % 3.6 % (0.0-3.0); LYMPH # 3.0 10^3/uL (1.5-5.0); LYMPH % 39.7 % (24.0-44.0); MONO # 0.6 10^3/uL (0.0-0.8); MONO % 8.5 % (2.0-8.0); NEUTROPHILS # 3.6 10^3/uL (1.5-8.5); NEUTROPHILS % 47.4 % (36.0-66.0); PLATELET COUNT, AUTOMATED 223 10^3/uL (150-450)
[2025-05-18 15:56] LABS: PSA SCREENING 0.41 NG/ML (< 4.00)
[2025-05-18 15:57] LABS: ALT/SGPT 25 U/L (7.0-40); AST/SGOT 24 U/L (<34); CALCIUM LEVEL 9.0 MG/DL (8.5-10.1); CARBON DIOXIDE LEVEL 31 MMOL/L (20-31); CHLORIDE LEVEL 104 MMOL/L (98-107); CHOLESTEROL LEVEL 188 MG/DL (<200); CHOLESTEROL RISK RATIO 3.46 (<5); CREATININE FOR GFR 0.96 MG/DL (0.70-1.30); GLOMERULAR FILTRATION RATE > 90.0 (>56); LDL CHOLESTEROL 106.0 MG/DL (<100); NON-HDL-C 133.8 MG/DL; POTASSIUM SERUM 3.7 MMOL/L (3.5-5.1); SODIUM LEVEL 140 MMOL/L (136-145); TRIGLYCERIDES LEVEL 139 MG/DL (<150)
[2025-05-18 16:01] LABS: FREE T4 1.43 NG/DL (0.89-1.76)
[2025-05-18 16:53] LABS: CPK CREATINE PHOSPHOKINASE 167 U/L (46-171); THYROGLOBULIN ANTIBODY 20.0 U/ML (<60.0)
== END ==
LOC: M SFHCPLAZ 13:42
PROVIDERS: ATTEND Physician Assistant Medical
DX: E78.2 Mixed hyperlipidemia (principal); C73 Malignant neoplasm of thyroid gland; J30.9 Allergic rhinitis, unspecified; Z12.5 Encounter for screening for malignant neoplasm of prostate